=== PATIENT | female | born 1940 | race Caucasian/White ===

== ENCOUNTER 2016-09-01 16:16 | Outpatient (CLI) | payer MEDICARE | END 2016-09-01 16:17 | disposition home or self-care (01) | LOC: MADLAB 16:16 | PROVIDERS: ATTEND Family Medicine | DX: M48.06 Spinal stenosis, lumbar region (principal); G31.89 Other specified degenerative diseases of nervous system | CPT/HCPCS: 36415; 82565 ==

== ENCOUNTER 2016-09-05 17:59 | Outpatient (CLI) | payer MEDICARE | END 2016-09-05 18:00 | disposition home or self-care (01) | LOC: MADLAB 17:59 | PROVIDERS: ATTEND Family Medicine | DX: N28.9 Disorder of kidney and ureter, unspecified (principal) | CPT/HCPCS: 82565 ==

== ENCOUNTER 2020-09-06 15:28 | Outpatient (CLI) | payer MEDICARE ==
[2020-09-06 16:23] LABS: #Eosinphils 0.1 thou/uL (0.0-0.7); #Lymphocytes 1.5 thou/uL (1.20-3.40); #Monocytes 0.4 thou/uL (0.11-0.59); #Neutrophils 3.7 thou/uL (1.40-6.50); %Basophils 0.7 % (0.0-1.0); %Eosinophils 1.1 % (0.0-10.0); %Lymphocytes 26.9 % (21.0-51.0); %Monocytes 6.4 % (0.0-10.0); %Neutrophils 64.9 % (42.0-75.0); Mean Corpuscular HGB CONC 30.4 g/dL (32.0-36.0); Mean Corpuscular Hemoglobin 28.7 pg (27.0-31.0); Mean Corpuscular Volume 94.5 fL (78.0-98.0); Mean Platelet Volume 9.1 fL (7.4-10.4); Platelet Count 167 thou/uL (130-400); RBC Distribution Width 13.1 % (11.5-14.5); Red Blood Cell (RBC) Count 4.88 mill/uL (4.20-5.40); White Blood Cell (WBC) Count 5.6 thou/uL (4.8-10.8)
[2020-09-06 16:55] LABS: ALT (SGPT) 17 U/L (8-55); AST (SGOT) 19 U/L (5-34); Albumin 4.4 g/dL (3.4-4.8); Alkaline Phosphatase 65 U/L (40-110); Anion Gap 14 mmol/L (10-20); BUN (Urea Nitrogen) 20 mg/dL (9.8-20.1); Bilirubin, Total 0.4 mg/dL (0.2-1.2); Calc. Creatinine Clearance 0 mL/min (70-130); Calcium 9.7 mg/dL (7.8-10.44); Carbon Dioxide 27 mmol/L (23-31); Cardiac Risk 3.5 (Less than 4.5); Chloride 103 mmol/L (98-107); Cholesterol 207 mg/dl (< 200 Desired); Globulin 4.6 g/dL (2.4-3.5); Glucose 93 mg/dL (83-110); HDL Cholesterol 60 mg/dL (>60 Neg Risk); LDL Cholesterol, Calculated 132 mg/dL; Potassium 4.8 mmol/L (3.5-5.1); Sodium 139 mmol/L (136-145); Triglycerides 75 mg/dL (Less than 150)
[2020-09-06 21:52] LABS: Hemoglobin A1c 5.4 % (4.0-6.0)
== END 2020-09-06 15:29 | disposition home or self-care (01) ==
LOC: MADRAD 15:28
PROVIDERS: ATTEND Family Medicine
DX: Z00.01 Encounter for general adult medical examination with abnormal findings (principal); M25.562 Pain in left knee; M17.12 Unilateral primary osteoarthritis, left knee
CPT/HCPCS: 36415; 80053; 80061; 83036; 84443; 85025

== ENCOUNTER 2021-12-18 13:57 | Outpatient (CLI) | payer MEDICARE, OTHER | END 2021-12-18 13:58 | disposition home or self-care (01) | LOC: MADRAD 13:57 | PROVIDERS: ATTEND Family Medicine | DX: M25.562 Pain in left knee (principal); M17.12 Unilateral primary osteoarthritis, left knee ==

== ENCOUNTER 2022-01-31 14:54 | Outpatient (CLI) | payer OTHER | END 2022-01-31 14:55 | disposition home or self-care (01) | LOC: MADRAD 14:54 | PROVIDERS: ATTEND Internal Medicine | DX: R06.00 Dyspnea, unspecified (principal) | CPT/HCPCS: 71046 ==

== ENCOUNTER 2022-06-21 14:25 | Outpatient (CLI) | payer OTHER ==
[2022-06-22 13:43] LABS: Reference Lab Name LABCORP
[2022-06-25 11:15] LABS: Adenovirus F 40-41 Not Detected (Not Detected); Astrovirus Not Detected (Not Detected); Campylobacter by PCR Not Detected (Not Detected); Cryptosporidium Not Detected (Not Detected); Cyclospora cayetanensis Not Detected (Not Detected); Entamoeba histolytica Not Detected (Not Detected); Enteroaggregative E. coli Not Detected (Not Detected); Enteropathogenic E. coli Not Detected (Not Detected); Enterotoxigenic E. coli Not Detected (Not Detected); Giardia lamblia Not Detected (Not Detected); Norovirus GI-GII Not Detected (Not Detected); Plesiomonas shigelloides Not Detected (Not Detected); Rotavirus A Not Detected (Not Detected); Salmonella Not Detected (Not Detected); Sapovirus Not Detected (Not Detected); Shiga-toxin-producing E coli Not Detected (Not Detected); Shigella/Enteroinvasive E coli Not Detected (Not Detected); Vibrio Not Detected (Not Detected); Vibrio cholerae Not Detected (Not Detected); Yersinia enterocolitica Not Detected (Not Detected)
== END 2022-06-21 14:26 | disposition home or self-care (01) ==
LOC: MADLAB 14:25
PROVIDERS: ATTEND Physician Assistant Medical
DX: K92.1 Melena (principal); R14.2 Eructation; R19.7 Diarrhea, unspecified
CPT/HCPCS: 82705; 87507

== ENCOUNTER 2022-12-10 14:47 | Outpatient (CLI) | payer OTHER ==
[2022-12-10 15:18] LABS: ALT (SGPT) 9 U/L (8-55); AST (SGOT) 14 U/L (5-34); Albumin 4.1 g/dL (3.4-4.8); Alkaline Phosphatase 69 U/L (40-110); Anion Gap 13 mmol/L (10-20); BUN (Urea Nitrogen) 21 mg/dL (9.8-20.1); Bilirubin, Total 0.5 mg/dL (0.2-1.2); Calc. Creatinine Clearance 0 mL/min (70-130); Carbon Dioxide 26 mmol/L (23-31); Chloride 101 mmol/L (98-107); Estimated GFR 37; Glucose 106 mg/dL (83-110); Potassium 4.4 mmol/L (3.5-5.1); Protein, Total 9.1 g/dL (5.8-8.1); Sodium 136 mmol/L (136-145)
[2022-12-10 15:25] LABS: #Basophils 0.1 thou/uL (0.0-0.2); #Lymphocytes 1.4 thou/uL (1.20-3.40); #Monocytes 0.3 thou/uL (0.11-0.59); #Neutrophils 3.1 thou/uL (1.40-6.50); %Basophils 1.2 % (0.0-1.0); %Eosinophils 0.7 % (0.0-10.0); %Lymphocytes 27.8 % (21.0-51.0); %Monocytes 7.1 % (0.0-10.0); %Neutrophils 63.2 % (42.0-75.0); Hematocrit 42.1 % (36.0-47.0); Hemoglobin 13.4 g/dL (12.0-16.0); Mean Corpuscular HGB CONC 31.8 g/dL (32.0-36.0); Mean Corpuscular Hemoglobin 29.8 pg (27.0-31.0); Mean Corpuscular Volume 93.6 fl (78.0-98.0); Mean Platelet Volume 10.3 fL (7.4-10.4); Platelet Count 147 10x3/uL (130-400); RBC Distribution Width 13.1 % (11.5-14.5); White Blood Cell (WBC) Count 4.9 10x3/uL (4.8-10.8)
== END 2022-12-10 14:48 | disposition home or self-care (01) ==
LOC: MADEKG 14:47
PROVIDERS: ATTEND Surgery
DX: K42.9 Umbilical hernia without obstruction or gangrene (principal)
CPT/HCPCS: 36415; 80053; 85025; 93005; 93010

== ENCOUNTER 2023-07-15 15:50 | Emergency (ER) | payer OTHER ==
[2023-07-15] MEDS ORDERED: predniSONE 20 MG TAB ONE (18:56)
[2023-07-15] MEDS ORDERED: Benzonatate 100 MG CAP ONE (18:56)
[2023-07-15] MEDS ORDERED: Albuterol 200 PUFF (6.7GM INHALER) ONE (18:56)
== END 2023-07-15 19:08 | disposition home or self-care (01) ==
LOC: MADERS 15:50
DX: J20.9 Acute bronchitis, unspecified (principal)
CPT/HCPCS: 71046; J7512

== ENCOUNTER 2024-12-10 02:35 | Emergency (ER) | payer OTHER ==
[2024-12-10] MEDS ORDERED: HYDROcodone/Acetaminophen 5/325 mg Tablet ONE (03:16)
== END 2024-12-10 03:30 | disposition home or self-care (01) ==
LOC: MADERS 02:35
DX: M25.511 Pain in right shoulder (principal)
CPT/HCPCS: 99283

== ENCOUNTER 2024-12-16 17:08 | Outpatient (CLI) | payer OTHER | END 2024-12-16 17:09 | disposition home or self-care (01) | LOC: MADRAD 17:08 | DX: M79.601 Pain in right arm (principal); M47.812 Spondylosis without myelopathy or radiculopathy, cervical region | CPT/HCPCS: 72050 ==